=== PATIENT | male | born 1950 | race Caucasian/White ===

== ENCOUNTER 2022-03-15 14:58 | Emergency (ER) | payer OTHER, MEDICARE, BC ==
[~2022-03-15] VITALS: Ht 162.6 cm; Wt 91.0 kg
[2022-03-15] MEDS ORDERED: FLOXIN OTIC0.3 % AS (16:08)
[2022-03-15 16:12] VITALS: BP 121/72
== END 2022-03-15 16:15 | disposition home or self-care (01) | DRG 156 ==
LOC: ED 14:58
DX: H60.92 Unspecified otitis externa, left ear (principal)